=== PATIENT | male | born 1990 | race Caucasian/White ===

== ENCOUNTER 2016-12-19 19:18 | Emergency (ER) | payer SELFPAY ==
[~2016-12-19] VITALS: Ht 170.2 cm; Wt 84.1 kg
[2016-12-19 19:24] VITALS: BP 137/73; TEMP 98.7
[2016-12-19 20:30] VITALS: PULSE 78
== END 2016-12-19 20:31 | disposition home or self-care (01) ==
LOC: COL.ER 19:18
DX: S61.211A Laceration without foreign body of left index finger without damage to nail, initial encounter (principal); W26.0XXA Contact with knife, initial encounter; Y92.000 Kitchen of unspecified non-institutional (private) residence as the place of occurrence of the external cause

== ENCOUNTER 2019-04-10 05:49 | Emergency (ER) | payer OTHER ==
[~2019-04-10] VITALS: Ht 170.2 cm; Wt 86.4 kg
[2019-04-10 05:54] VITALS: TEMP 97.4
[2019-04-10 06:19] LABS: BASO % 0.2 % (0.0-2.0); EOS # 0.2 (0.0-0.7); EOS % 2.5 % (0-4.0); GRAN # 4.1 (1.4-6.5); GRAN % 43.7 % (42.2-75.2); HEMATOCRIT 48.8 % (42.0-52.0); HEMOGLOBIN 16.8 g/dl (13.5-18.0); LYMPH # 4.3 (1.2-3.4); LYMPH % 45.8 % (20.0-51.0); MEAN CELL VOLUME 87 fl (80.0-100.0); MEAN CORPUSCULAR HEMOGLOBIN 30 pg (27.0-31.0); MEAN CORPUSCULAR HGB CONC 34 g/dl (33.0-37.0); MEAN PLATELET VOLUME 11.8 fl (7.4-10.4); MONO # 0.7 (0.1-0.6); MONO % 7.5 % (1.7-9.3); PLATELET COUNT 263 K/mm3 (130-400); RED BLOOD COUNT 5.59 M/mm3 (4.20-5.60); REDCELL DISTRIBUTION WIDTH-CV 12.8 % (11.5-14.5)
[2019-04-10 06:22] LABS: COLLECTION METHOD CLEAN CATCH
[2019-04-10 06:27] LABS: MUCOUS Present /lpf; PH 5 (5-8); SQUAMOUS EPITHELIAL None Seen /hpf; URINE APPEARANCE Clear; URINE BACTERIA None Seen /hpf; URINE BILIRUBIN Negative (NEGATIVE); URINE BLOOD Negative (NEGATIVE); URINE COLOR Yellow; URINE GLUCOSE Negative (NEGATIVE); URINE KETONE Negative (NEGATIVE); URINE LEUKOCYTE ESTERASE Negative (NEGATIVE); URINE NITRATE Negative (NEGATIVE); URINE PROTEIN(semi-quant) Negative (NEGATIVE); URINE RBC 0-2 /hpf; URINE UROBILINOGEN Negative (NEGATIVE)
[2019-04-10 06:30] LABS: ALBUMIN 4.7 gm/dL (3.5-5.0); BILIRUBIN,TOTAL 1.1 mg/dL (0.0-1.0); CALCIUM 9.4 mg/dL (8.4-10.2); CREATININE, serum 0.87 (0.66-1.25); POTASSIUM 4.2 mmol/L (3.4-5.0); TOTAL PROTEIN 8.2 gm/dL (6.4-8.2)
[2019-04-10] MEDS ORDERED: ZOFRAN 4MG T4 MG/TAB PO (06:49)
[2019-04-10] MEDS ORDERED: NORCO 325 MG-51 TAB PO (06:49)
[2019-04-10] MEDS ORDERED: FLOMAX 0.40.4 MG/CAP PO (06:49)
[2019-04-10 07:15] VITALS: BP 125/71; PULSE 66
== END 2019-04-10 07:15 | disposition home or self-care (01) ==
LOC: COL.ER 05:49
PROVIDERS: Emergency Medicine
DX: N20.1 Calculus of ureter (principal); Z87.442 Personal history of urinary calculi; Z88.6 Allergy status to analgesic agent
CPT/HCPCS: J2270; J2405; J7030

== ENCOUNTER 2020-12-20 13:37 | Emergency (ER) | payer BC, OTHER ==
[~2020-12-20] VITALS: Ht 177.8 cm; Wt 85.5 kg
[~2020-12-20 13:37] MED LIST: FLOMAX 0.40.4 MG/CAP PO; NORCO 325 MG-51 TAB PO; ZOFRAN 4MG T4 MG/TAB PO
[2020-12-20 13:44] VITALS: TEMP 98.3
[2020-12-20] MEDS ORDERED: ADDERALL XR20 MG PO (13:47)
[2020-12-20] MEDS ORDERED: ADDERALL20 MG PO (13:47)
[2020-12-20 14:23] LABS: BASO % 0.4 % (0.0-2.0); EOS # 0.2 (0.0-0.7); GRAN # 6.7 (1.4-6.5); GRAN % 74.4 % (42.2-75.2); HEMATOCRIT 51.7 % (42.0-52.0); HEMOGLOBIN 17.7 g/dl (13.5-18.0); LYMPH # 1.5 (1.2-3.4); LYMPH % 16.4 % (20.0-51.0); MEAN CELL VOLUME 88 fl (80.0-100.0); MEAN CORPUSCULAR HEMOGLOBIN 30 pg (27.0-31.0); MEAN CORPUSCULAR HGB CONC 34 g/dl (33.0-37.0); MEAN PLATELET VOLUME 12.3 fl (7.4-10.4); MONO # 0.6 (0.1-0.6); MONO % 6.1 % (1.7-9.3); PLATELET COUNT 275 K/mm3 (130-400); RED BLOOD COUNT 5.85 M/mm3 (4.20-5.60)
[2020-12-20 15:25] LABS: ALBUMIN 4.4 gm/dL (3.5-5.0); CALCIUM 9.3 mg/dL (8.4-10.2); CREATININE, serum 1.12 (0.66-1.25); POTASSIUM 4.8 mmol/L (3.4-5.0); TOTAL PROTEIN 7.6 gm/dL (6.4-8.2)
[2020-12-20 16:38] LABS: COLLECTION METHOD CLEAN CATCH
[2020-12-20 16:44] LABS: MUCOUS Present /lpf; PH 6 (5-8); SQUAMOUS EPITHELIAL 0-2 /hpf; URINE APPEARANCE Hazy; URINE BACTERIA None Seen /hpf; URINE BILIRUBIN Negative (NEGATIVE); URINE BLOOD 3+ (NEGATIVE); URINE COLOR Yellow; URINE GLUCOSE Negative (NEGATIVE); URINE KETONE Negative (NEGATIVE); URINE LEUKOCYTE ESTERASE Negative (NEGATIVE); URINE NITRATE Negative (NEGATIVE); URINE PROTEIN(semi-quant) 1+ (NEGATIVE); URINE RBC 20-50 /hpf; URINE UROBILINOGEN Negative (NEGATIVE); URINE WBC 0-2 /hpf
[2020-12-20] MEDS ORDERED: NORCO 325 MG-51 TAB PO (17:03)
[2020-12-20 17:20] VITALS: BP 156/91; PULSE 82
== END 2020-12-20 17:20 | disposition home or self-care (01) ==
LOC: COL.ER 13:37
PROVIDERS: Emergency Medicine; Nurse Practitioner Primary Care
DX: N13.2 Hydronephrosis with renal and ureteral calculous obstruction (principal); F90.9 Attention-deficit hyperactivity disorder, unspecified type; Z88.6 Allergy status to analgesic agent; Z79.899 Other long term (current) drug therapy
CPT/HCPCS: J1885; J2270; J2405; Q9967

== ENCOUNTER 2021-10-06 06:36 | Emergency (ER) | payer BC ==
[~2021-10-06] VITALS: Ht 172.7 cm; Wt 80.9 kg
[~2021-10-06 06:36] MED LIST changes: +ADDERALL XR20 MG PO; +ADDERALL20 MG PO
[2021-10-06 06:48] VITALS: TEMP 97.6
[2021-10-06 07:34] LABS: BASO # 0.1 K/mm3 (0.0-0.2); BASO % 0.6 % (0.0-2.0); EOS # 0.3 K/mm3 (0.0-0.7); GRAN # 4.9 K/mm3 (1.4-6.5); GRAN % 53.7 % (42.2-75.2); HEMATOCRIT 48.7 % (42.0-52.0); HEMOGLOBIN 16.4 g/dl (13.5-18.0); LYMPH # 3.3 K/mm3 (1.2-3.4); MEAN CELL VOLUME 90 fl (80.0-100.0); MEAN CORPUSCULAR HEMOGLOBIN 30 pg (27-31); MEAN CORPUSCULAR HGB CONC 34 g/dl (33.0-37.0); MEAN PLATELET VOLUME 11.7 fl (7.4-10.4); MONO # 0.6 K/mm3 (0.1-0.6); MONO % 6.4 % (1.7-9.3); PLATELET COUNT 310 K/mm3 (130-400); RED BLOOD COUNT 5.43 M/mm3 (4.20-5.60); REDCELL DISTRIBUTION WIDTH-CV 12.8 % (11.5-14.5)
[2021-10-06 07:56] LABS: ALBUMIN 4.1 gm/dL (3.5-5.0); BILIRUBIN,TOTAL 0.8 mg/dL (0.2-1.2); CREATININE, serum 1.01 mg/dL (0.72-1.25); TOTAL PROTEIN 7.1 gm/dL (6.2-8.1)
[2021-10-06] MEDS ORDERED: NORCO 325 MG-51 TAB PO (09:37)
[2021-10-06] MEDS ORDERED: MIRALAX PA17 GM/Dose PO (09:38)
[2021-10-06] MEDS ORDERED: ZOFRAN ODT4 MG PO (09:38)
[2021-10-06 09:54] VITALS: BP 132/77; PULSE 70
== END 2021-10-06 09:54 | disposition home or self-care (01) ==
LOC: COL.ER 06:36
PROVIDERS: Emergency Medicine
DX: R10.11 Right upper quadrant pain (principal); K59.00 Constipation, unspecified; R11.2 Nausea with vomiting, unspecified; Z20.822 Contact with and (suspected) exposure to COVID-19
CPT/HCPCS: J1170; J2270; J2405; J7120